=== PATIENT | female | born 1980 | race Caucasian/White ===

== ENCOUNTER → 2020-12-23 | Outpatient (CLI) | payer BC, OTHER ==
[~2020-12-23] MED LIST: ATOR20TA37 PO; LISI-170 PO
[2020-12-23 15:27] LABS: ALANINE AMINOTRANSFERASE 129 U/L (12-78); ALBUMIN 4.2 g/dL (3.4-5.0); ANION GAP 5 mmol/L (5-15); CALCIUM 9.7 mg/dL (8.5-10.1); CHLORIDE 106 mmol/L (98-107); CREATININE 0.98 mg/dL (0.55-1.02)
[2020-12-23 15:30] LABS: ALKALINE PHOSPHATASE 109 U/L (45-117); BILIRUBIN,TOTAL 0.3 mg/dL (0.2-1.0); TOTAL PROTEIN 8.3 g/dL (6.4-8.2)
== END | disposition home or self-care (01) ==
LOC: STAR 14:10
PROVIDERS: ATTEND Otolaryngology
DX: Z01.812 Encounter for preprocedural laboratory examination (principal); Z20.822 Contact with and (suspected) exposure to COVID-19; J32.0 Chronic maxillary sinusitis
CPT/HCPCS: 36415; 80053; U0003

== ENCOUNTER 2020-12-29 06:23 | Day surgery (SDC) | payer BC, OTHER ==
[~2020-12-29] VITALS: Ht 165.1 cm; Wt 91.0 kg
[2020-12-29] MEDS ORDERED: EPINEPHRINE TOPICAL SOLN 1 MG/ML, 30ML ONE (06:42)
[2020-12-29] MEDS ORDERED: BACITRACIN OINT 500U/GM, 15 GM ONE (06:42)
[2020-12-29] MEDS ORDERED: LIDOCAINE/PF 1%, 30ML ONE (06:43)
[2020-12-29] MEDS ORDERED: BACITRACIN 50,000 UNIT ONE (06:43)
[2020-12-29] MEDS ORDERED: EPINEPHRINE 1 MG/ML, 1ML ONE (06:43)
[2020-12-29] MEDS ORDERED: OXYMETAZOLINE NASAL SPRAY 0.05%,30ML ONE (06:44)
[2020-12-29] MEDS ORDERED: FLUORESCEIN SODIUM 500 MG/5 ML ONE (07:04)
[2020-12-29] MEDS ORDERED: CHLORHEXIDINE 15 ML UDC ONE (07:09)
[2020-12-29] MEDS ORDERED: LIDOCAINE-MPF 1%, 2ML ONE (07:09)
[2020-12-29] MEDS ORDERED: LIDOCAINE-MPF 1%, 2ML INFIL ONE (07:30)
[2020-12-29] MEDS ORDERED: LACTATED RINGERS 1,000 ML IV SCH (07:30)
[2020-12-29] MEDS ORDERED: CHLORHEXIDINE 15 ML UDC PO ONE (07:30)
[2020-12-29 07:44] LABS: HCG UR SG 1.012 (1.003-1.030)
[2020-12-29] MEDS ORDERED: MIDAZOLAM 1 MG/ML, 2ML ONE (07:50)
[2020-12-29] MEDS ORDERED: FENTANYL PF 250 MCG/5ML ONE (07:50)
[2020-12-29] MEDS ORDERED: ONDANSETRON 2MG/ML, 2ML IVPush PRN (08:00)
[2020-12-29] MEDS ORDERED: hydrALAzine 20 MG/ML, 1ML IV PRN (08:00)
[2020-12-29] MEDS ORDERED: ACETAMINOPHEN 325 MG TABLET PO PRN (08:00)
[2020-12-29] MEDS ORDERED: PROMETHAZINE 25 MG/ML, 1ML IVPush PRN (08:00)
[2020-12-29] MEDS ORDERED: HYDROmorphone 1 MG/ML, 1ML INJ IVPush PRN (08:00)
[2020-12-29] MEDS ORDERED: MEPERIDINE/PF 25MG/0.5ML IVPush PRN (08:00)
[2020-12-29] MEDS ORDERED: OXYcodone 5 MG/5 ML ORAL.SOL UDC PO PRN (08:00)
[2020-12-29] MEDS ORDERED: FENTANYL PF 100 MCG/2ML IV PRN (08:00)
[2020-12-29] MEDS ORDERED: LABETALOL 5MG/ML, 20ML IV PRN (08:00)
[2020-12-29] MEDS ORDERED: DEXAMETHASONE 4 MG/ML, 1ML ONE ×2 (08:37)
[2020-12-29] MEDS ORDERED: CEFAZOLIN 1,000 MG ONE (08:52)
[2020-12-29] MEDS ORDERED: EPHEDRINE 50 MG/ML, 1ML ONE (08:56)
[2020-12-29] MEDS ORDERED: ROCURONIUM 10MG/ML,5ML ONE (08:57)
[2020-12-29] MEDS ORDERED: PROPOFOL 10 MG/ML, 20ML ONE (08:57)
[2020-12-29] MEDS ORDERED: ONDANSETRON 2MG/ML, 2ML ONE (09:39)
[2020-12-29] MEDS ORDERED: ACETAMINOPHEN 650 MG/20.3 ML UDC ONE (10:21)
[2020-12-29] MEDS ORDERED: LABETALOL 5MG/ML, 20ML ONE (10:45)
== END 2020-12-29 12:12 | disposition home or self-care (01) ==
LOC: OUT 06:23
PROVIDERS: ATTEND Otolaryngology
DX: J32.0 Chronic maxillary sinusitis (principal); J34.89 Other specified disorders of nose and nasal sinuses; H53.2 Diplopia; I10 Essential (primary) hypertension; Z79.899 Other long term (current) drug therapy; Z82.49 Family history of ischemic heart disease and other diseases of the circulatory system
CPT/HCPCS: 31240; 31255; 31256; 81025; 88304; J0171; J0690; J1100; J2250; J2405; J2704; J3010; J7120

== ENCOUNTER 2021-01-05 05:15 | Day surgery (SDC) | payer BC, OTHER ==
[~2021-01-05] VITALS: Ht 165.1 cm; Wt 92.0 kg
[2021-01-05] MEDS ORDERED: OXYMETAZOLINE NASAL SPRAY 0.05%,30ML ONE (06:32)
[2021-01-05 06:34] VITALS: BP 167/97
[2021-01-05] MEDS ORDERED: LIDOCAINE 2% 100MG/5ML SYRINGE IVPush ONE (08:21)
== END 2021-01-05 07:25 | disposition home or self-care (01) ==
LOC: OUT 05:15
PROVIDERS: ATTEND Otolaryngology
DX: J32.0 Chronic maxillary sinusitis (principal); J32.8 Other chronic sinusitis; Z79.899 Other long term (current) drug therapy; Z20.822 Contact with and (suspected) exposure to COVID-19; Z82.49 Family history of ischemic heart disease and other diseases of the circulatory system
CPT/HCPCS: 87635